=== PATIENT | female | born 1975 | race Caucasian/White ===

== ENCOUNTER 2017-05-27 19:26 | Day surgery (SDC) | payer BC ==
[2017-05-27] MEDS ORDERED: Sodium Chloride 0.9% 10 ML Syringe FLUSH PRN ×2 (20:24→21:56)
[2017-05-27] MEDS ORDERED: LORazepam 2 MG/ML SDV IVPUSH ONE (20:24)
[2017-05-27] MEDS ORDERED: Glucagon,Human Recombinant 1 MG Vial IVPUSH ONE (20:24)
[2017-05-27] MEDS ORDERED: Ondansetron 4 MG/2 ML SDV IVPUSH ONE (20:24)
[2017-05-27] MEDS ORDERED: Sodium Chloride 0.9% 1,000 ML IV SCH ×2 (20:30→22:00)
--- NOTE | 2017-05-27 20:30 | EDM.PDOC ---
ED HPI GENERAL MEDICAL PROBLEM - General Chief Complaint: Gastrointestinal Problem Stated Complaint: FOOD STUCK IN ESOPHGUS Time Seen by Provider: 05/27/17 20:06 Source of Information: Reports: Patient History Limitations: Reports: No Limitations - History of Present Illness INITIAL COMMENTS - FREE TEXT/NARRATIVE: Patient is a 42-year-old female presents ED complaining of food stuck in her esophagus. She is has a history of eosinophilic esophagitis and has had 2 obstructions in the past with similar symptoms. She's had to go the OR both times to have the food bolus removed. She's been vomiting ever since this occurred at 5:30 this afternoon. Again it was a small piece of roast beef that she swallowed causing the obstruction. Since then she's been vomiting up all her secretions. Pain is mild to moderate in nature. No other complaints at this time. Patient has a history of hypothyroidism, factor V Leiden, and anxiety/ depression. Current medications include levothyroxine, Lexapro, and also baby aspirin daily. Throat Pain Score (Numeric/FACES): 10 - Related Data Allergies Allergy/AdvReac Type Severity Reaction Status Date / Time levothyroxine sodium Allergy Mild Hives Verified 05/27/17 20:00 [From Synthroid] nitrofurantoin Allergy Mild Hives Verified 05/27/17 20:00 [From Macrobid] nitrofurantoin Allergy Mild Hives Verified 05/27/17 20:00 macrocrystalline [From Macrobid] Penicillins Allergy Mild Hives Verified 05/27/17 20:00 Sulfa (Sulfonamide AdvReac Mild Vaginitis Verified 05/27/17 20:00 Antibiotics) Home Meds: Home Meds Aspirin [Halfprin] 81 mg PO DAILY 03/06/16 [History] Escitalopram [Lexapro] 10 mg PO DAILY 03/06/16 [History] Levothyroxine Sodium [Levothyroxine Sodium] 88 mcg PO DAILY 03/06/16 [History] Past Medical History Respiratory History: Reports: Asthma Gastrointestinal History: Reports: Other (See Below) Other Gastrointestinal History: chronic esophogitis, 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: Psychiatric History: Reports: Depression Endocrine/Metabolic History: Reports: Hypothyroidism Hematologic History: Reports: Other (See Below) Other Hematologic History: factor IV leiden - Past Surgical History HEENT Surgical History: Reports: Other (See Below) Other HEENT Surgeries/Procedures: esophigitis Female Surgical History: Reports: Breast Reduction, Section, Tubal Ligation Social & Family History - Family History Cardiac: Reports: CAD Endocrine/Metabolic: Reports: Diabetes, type II - Tobacco Use Smoking Status *Q: Never Smoker Second Hand Smoke Exposure: No - Caffeine Use Caffeine Use: Reports: None - Recreational Drug Use Recreational Drug Use: No ED ROS GENERAL - Review of Systems Review Of Systems: ROS reveals no pertinent complaints other than HPI. ED EXAM, GI/ABD - Physical Exam Exam: See Below Exam Limited By: No Limitations General Appearance: Alert, WD/WN, Mild Distress Ears: Hearing Grossly Normal Nose: Normal Inspection Throat/Mouth: Normal Inspection, Normal Oropharynx, Normal Voice, No Airway Compromise Head: Atraumatic, Normocephalic Neck: Normal Inspection, Supple Respiratory/Chest: No Respiratory Distress, Lungs Clear, Normal Breath Sounds, No Accessory Muscle Use, Chest Non-Tender Cardiovascular: Normal Peripheral Pulses, Regular Rate, Rhythm GI/Abdominal Exam: Normal Bowel Sounds, Soft, Non-Tender, No Organomegaly, No Distention Neurological: Alert, Oriented, CN II-XII Intact, Normal Cognition, No Motor/ Sensory Deficits Psychiatric: Normal Affect, Normal Mood Skin Exam: Warm, Dry, Intact, Normal Color Course - Vital Signs Last Recorded V/S: Last Vital Signs Temp 98.3 F 05/27/17 23:24 Pulse 96 05/27/17 23:24 Resp 18 05/27/17 23:24 BP 109/71 05/27/17 23:24 Pulse Ox 96 05/27/17 23:24 - Orders/Labs/Meds Orders: Active Orders 24 hr Category Date Time Status Patient Status [ADT] Routine ADT 05/27/17 21:52 Active Communication Order [RC] ROUTINE Care 05/27/17 21:56 Active Communication Order [RC] ROUTINE Care 05/27/17 22:39 Active Cooling Warming Measures [RC] ASDIRECTED Care 05/27/17 22:39 Active Notify Provider [RC] ASDIRECTED Care 05/27/17 22:39 Active Oxygen Therapy [RC] ASDIRECTED Care 05/27/17 22:39 Active Patient to Empty Bladder [RC] ASDIRECTED Care 05/27/17 21:56 Active Peripheral IV Care [RC] . DIRECTED Care 05/27/17 20:24 Active Peripheral IV Care [RC] . DIRECTED Care 05/27/17 21:57 Active Pulse Oximetry [RC] ASDIRECTED Care 05/27/17 22:39 Active Ready for Discharge [RC] PER UNIT ROUTINE Care 05/27/17 22:26 Active Verify Patient Consent Obtain [RC] ASDIRECTED Care 05/27/17 21:56 Active Vital Signs [RC] Q15M Care 05/27/17 22:39 Active Peripheral IV Insertion Adult [OM.PC] Routine Oth 05/27/17 20:24 Ordered Peripheral IV Insertion Adult [OM.PC] Routine Oth 05/27/17 21:56 Ordered Schedule Procedure [COMM] Stat Oth 05/27/17 22:01 Ordered Resuscitation Status Routine Resus Stat 05/27/17 21:56 Ordered Meds: Medications Discontinued Medications Generic Name Dose Route Start Last Admin Trade Name Freq PRN Reason Stop Dose Admin Dexamethasone Confirm 05/27/17 22:22 Dexamethasone Administered 05/27/17 22:23 Dose 4 mg .ROUTE .STK-MED ONE Dexamethasone Confirm 05/27/17 22:22 Dexamethasone Administered 05/27/17 22:23 Dose 4 mg .ROUTE .STK-MED ONE Diphenhydramine HCl 25 mg 05/27/17 22:39 Benadryl IVPUSH Q6H PRN Pruritis Fentanyl Confirm 05/27/17 21:44 Sublimaze Administered 05/27/17 21:45 Dose 250 mcg .ROUTE .STK-MED ONE Fentanyl 50 mcg 05/27/17 22:39 Sublimaze IVPUSH Q5M PRN Pain Glucagon 1 mg 05/27/17 20:24 05/27/17 20:58 Glucagen IVPUSH 05/27/17 20:25 1 mg ONETIME ONE Administration Glycopyrrolate Confirm 05/27/17 22:24 Robinul Administered 05/27/17 22:25 Dose 0.2 mg .ROUTE .STK-MED ONE Haloperidol Lactate 1 mg 05/27/17 22:39 Haldol IVPUSH 05/27/17 22:40 ONETIME ONE Sodium Chloride 1,000 mls @ 150 mls/hr 05/27/17 20:30 05/27/17 20:52 Normal Saline IV 150 mls/hr ASDIRECTED TOMER Administration Lidocaine HCl Confirm 05/27/17 21:44 Xylocaine-Mpf 1% Administered 05/27/17 21:45 Dose 4 mls @ as directed .ROUTE .STK-MED ONE Sodium Chloride 1,000 mls @ 125 mls/hr 05/27/17 22:00 Normal Saline IV ASDIRECTED TOMER Lorazepam 1 mg 05/27/17 20:24 05/27/17 20:55 Ativan IVPUSH 05/27/17 20:25 1 ml ONETIME ONE Administration Midazolam HCl Confirm 05/27/17 21:44 Versed 1 Mg/Ml Administered 05/27/17 21:45 Dose 2 mg .ROUTE .STK-MED ONE Ondansetron HCl 4 mg 05/27/17 20:24 05/27/17 20:53 Zofran IVPUSH 05/27/17 20:25 4 mg ONETIME ONE Administration Propofol Confirm 05/27/17 21:44 Diprivan 20 Ml Administered 05/27/17 21:45 Dose 400 mg .ROUTE .STK-MED ONE Sodium Chloride 10 ml 05/27/17 20:24 05/27/17 20:52 Saline Flush FLUSH 10 ml ASDIRECTED PRN Administration Keep Vein Open Sodium Chloride 10 ml 05/27/17 21:56 Saline Flush FLUSH ASDIRECTED PRN Keep Vein Open Succinylcholine Chloride Confirm 05/27/17 21:44 Quelicin Administered 05/27/17 21:45 Dose 200 mg .ROUTE .STK-MED ONE - Re-Assessments/Exams Free Text/Narrative Re-Assessment/Exam: Order peripheral IV with Ativan 1 mg IVP, glucagon 1 mg IVP, and also Zofran 4 mg IVP. 2124 Patient received the medications and has been sipping on small amounts of Sprite with no change in current condition. 05/27/17 21:[address] Venegas on-call general surgeon he will see the patient in the ED. Request OR staff be called in. Departure - Departure Time of Disposition: 21:30 Disposition: DC/Tfer to [facility] Condition: Good Clinical Impression: Esophageal obstruction due to food impaction - Discharge Information - My Orders Last 24 Hours: My Active Orders 05/27/17 20:24 Peripheral IV Care [RC] . DIRECTED Peripheral IV Insertion Adult [OM.PC] Routine - Assessment/Plan Last 24 Hours: My Active Orders 05/27/17 20:24 Peripheral IV Care [RC] . DIRECTED Peripheral IV Insertion Adult [OM.PC] Routine
[2017-05-27] MEDS ORDERED: fentaNYL 250 MCG/5 ML SDV ONE (21:44)
[2017-05-27] MEDS ORDERED: Succinylcholine 200 MG/10 ML MDV ONE (21:44)
[2017-05-27] MEDS ORDERED: Propofol 200 MG/20 ML SDV ONE (21:44)
[2017-05-27] MEDS ORDERED: Midazolam 1 MG/ML 2 ML SDV ONE (21:44)
[2017-05-27] MEDS ORDERED: Lidocaine 1% 4 ML ONE (21:44)
--- NOTE | 2017-05-27 22:04 | PCM.HP ---
H&P History of Present Illness - General Date of Service: 05/27/17 Admit Problem/Dx: Admission Diagnosis/Problem Admission Diagnosis/Problem Food impaction of esophagus Source of Information: Patient, Family, Provider - History of Present Illness Initial Comments - Free Text/Narative: 42-year-old female is 10 and 4 years status post balloon dilatation for reflux related esophageal strictures. During her last endoscopic procedure she was diagnosed with eosinophilic esophagitis. She is being followed by gastroenterology in [place] for this. She has been meticulous about how she eats foods by chewing well and using judicious amounts of water or liquids to make sure food passage occurs. Over the past year or so she's had progressive difficulty with swallowing. About 4 hours prior to presenting to the emergency room she ate roast beef and knew immediately that it was stuck and wouldn't pass. She was unable to handle her salivary secretions and was experiencing chest discomfort. She was seen by ED staff who tried to medically manage her esophageal food impaction but this effort was unsuccessful. I was asked to see her for mechanical disimpaction. Throat Pain Score (Numeric/FACES): 10 - Related Data Allergies/Adverse Reactions: Allergies Allergy/AdvReac Type Severity Reaction Status Date / Time levothyroxine sodium Allergy Mild Hives Verified 05/27/17 20:00 [From Synthroid] nitrofurantoin Allergy Mild Hives Verified 05/27/17 20:00 [From Macrobid] nitrofurantoin Allergy Mild Hives Verified 05/27/17 20:00 macrocrystalline [From Macrobid] Penicillins Allergy Mild Hives Verified 05/27/17 20:00 Sulfa (Sulfonamide AdvReac Mild Vaginitis Verified 05/27/17 20:00 Antibiotics) Home Medications: Home Meds Aspirin [Halfprin] 81 mg PO DAILY 03/06/16 [History] Escitalopram [Lexapro] 10 mg PO DAILY 03/06/16 [History] Levothyroxine Sodium [Levothyroxine Sodium] 88 mcg PO DAILY 03/06/16 [History] Past Medical History Respiratory History: Reports: Asthma Gastrointestinal History: Reports: Other (See Below) Other Gastrointestinal History: chronic esophogitis, 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: Psychiatric History: Reports: Depression Endocrine/Metabolic History: Reports: Hypothyroidism Hematologic History: Reports: Other (See Below) Other Hematologic History: factor IV leiden - Past Surgical History HEENT Surgical History: Reports: Other (See Below) Other HEENT Surgeries/Procedures: esophigitis Female Surgical History: Reports: Breast Reduction, Section, Tubal Ligation Social & Family History - Family History Cardiac: Reports: CAD Endocrine/Metabolic: Reports: Diabetes, type II - Tobacco Use Smoking Status *Q: Never Smoker Second Hand Smoke Exposure: No - Caffeine Use Caffeine Use: Reports: None - Recreational Drug Use Recreational Drug Use: No H&P Review of Systems - Review of Systems: Review Of Systems: ROS reveals no pertinent complaints other than HPI. Exam - Exam Exam: See Below - Vital Signs Vital Signs: Last Vital Signs Temp 36.0 C 05/27/17 19:57 Pulse 93 05/27/17 19:57 Resp 16 05/27/17 19:57 BP 148/86 H 05/27/17 19:57 Pulse Ox 99 05/27/17 19:57 Weight: 92.986 kg - Exam General: Alert, Oriented, Mild Distress HEENT: Hearing Intact Neck: Supple, Trachea Midline, Full Range of Motion Lungs: Clear to Auscultation, Normal Respiratory Effort Cardiovascular: Regular Rate, Regular Rhythm, Normal S1, Normal S2 GI/Abdominal Exam: Soft, Non-Tender (Female) Exam: Deferred Rectal (Female) Exam: Deferred Extremities: Non-Tender Skin: Warm, Dry, Intact Neuro Extensive - Mental Status: Alert, Oriented x3, Normal Mood/Affect, Normal Cognition Psychiatric: Alert, Normal Affect, Normal Mood *Q Meaningful Use (ADM) - VTE *Q VTE Criteria *Q: - Stroke *Q Stroke Criteria *Q: - AMI *Q AMI Criteria *Q: - Problem List (1) Esophageal obstruction due to food impaction SNOMED Code(s): 035872914 ICD Code: K22.2 - ESOPHAGEAL OBSTRUCTION; T18.128A - FOOD IN ESOPHAGUS CAUSING OTHER INJURY, INITIAL ENCOUNTER Status: Acute Priority: High Current Visit: Yes Problem List Initiated/Reviewed/Updated: Yes Orders Last 24hrs: Active Orders 24 hr Category Date Time Status Patient Status [ADT] Routine ADT 05/27/17 21:52 Active Communication Order [RC] ROUTINE Care 05/27/17 21:56 Ordered Patient to Empty Bladder [RC] ASDIRECTED Care 05/27/17 21:56 Ordered Peripheral IV Care [RC] . DIRECTED Care 05/27/17 20:24 Active Peripheral IV Care [RC] . DIRECTED Care 05/27/17 21:57 Ordered Verify Patient Consent Obtain [RC] ASDIRECTED Care 05/27/17 21:56 Ordered Nothing Per Oral Diet [DIET] Diet 05/27/17 Dinner Ordered Sodium Chloride 0.9% @ 125 MLS/HR (1000ml) Med 05/27/17 22:00 Ordered Sodium Chloride 0.9% [Normal Saline] 1,000 ml IV ASDIRECTED Sodium Chloride 0.9% [Normal Saline] 1,000 ml Med 05/27/17 20:30 Active IV ASDIRECTED Sodium Chloride 0.9% [Saline Flush] Med 05/27/17 20:24 Active 10 ml FLUSH ASDIRECTED PRN Sodium Chloride 0.9% [Saline Flush] Med 05/27/17 21:56 Ordered 10 ml FLUSH ASDIRECTED PRN Peripheral IV Insertion Adult [OM.PC] Routine Oth 05/27/17 20:24 Ordered Peripheral IV Insertion Adult [OM.PC] Routine Oth 05/27/17 21:56 Ordered Resuscitation Status Routine Resus Stat 05/27/17 21:56 Ordered Medication Orders Sodium Chloride (Normal Saline) 1,000 mls @ 150 mls/hr IV ASDIRECTED TOMER Last Admin: 05/27/17 20:52 Dose: 150 mls/hr Sodium Chloride (Normal Saline) 1,000 mls @ 125 mls/hr IV ASDIRECTED TOMER Sodium Chloride (Saline Flush) 10 ml FLUSH ASDIRECTED PRN PRN Reason: Keep Vein Open Last Admin: 05/27/17 20:52 Dose: 10 ml Sodium Chloride (Saline Flush) 10 ml FLUSH ASDIRECTED PRN PRN Reason: Keep Vein Open Assessment/Plan Comment:: Esophageal meat impaction refractory to medical management. I recommended esophagogastroduodenoscopy with meat disimpaction plus or minus biopsies. The patient's memory with procedure, its risks and benefits as well as the alternatives and wants to proceed as soon as possible.
[2017-05-27] MEDS ORDERED: Dexamethasone 4 MG/ML SDV ONE ×2 (22:22)
[2017-05-27] MEDS ORDERED: Glycopyrrolate 0.2 MG/ML SDV ONE (22:24)
--- NOTE | 2017-05-27 22:34 | PCM.OPNOTE ---
- General Post-Op/Procedure Note Date of Surgery/Procedure: 05/27/17 Operative Procedure(s): Esophagogastroduodenoscopy with esophageal meat disimpaction Findings: Narrow caliber esophagus with no jameel strictures or mass lesions. Esophageal mucosa was erythematous consistent with eosinophilic esophagitis. There was roast beef impacted in the distal esophagus just above the GE junction. There was food in the body of the stomach. Pre Op Diagnosis: Symptomatic esophageal meat impaction refractory to medical management Post-Op Diagnosis: Same Anesthesia Technique: General ET Tube Primary Surgeon: Jay Venegas Pathology: None EBL in mLs: 0 Complications: None Condition: Good Free Text/Narrative:: After adequate general endotracheal tube anesthesia was obtained the patient was placed in the left lateral decubitus position with monitoring. Through a bite-block lubricated upper endoscope was inserted into the esophagus and advanced towards the stomach. I could see the roast beef stuck in the distal aspect of the esophagus. I irrigated out the distal esophagus with saline solution. I then slowly advance the scope pushing the meat very carefully through the GE junction after making sure there were no strictures or mass lesions present. The food dropped into the stomach. There was additional fluid inthe body the stomach from this evening meal. I then gave additional air and then advanced scope towards the antrum and pylorus. I passed the scope through the pylorus into the second part of the duodenum. The second and first parts were endoscopically normal. The antrum was unremarkable. In the retroflexed view the cardiac and fundic regions were normal. There was no hiatal hernia. There was food in the body of the stomach as mentioned before. I then withdrew the scope to the GE junction. There were no Schatzki's rings webs or peptic stricture seen. There were no distal esophageal mass lesions. The esophagus was narrow caliber in general and had a light erythematous hue to it consistent with chronic esophagitis diffusely. I irrigated out the entire body esophagus until it was clear. The patient tolerated the procedure well and there were no complications. [employer] photographs were taken for the patient and for the medical record.
--- NOTE | 2017-05-27 22:38 | PCM.PREANE ---
Preanesthetic Assessment - Anesthesia/Transfusion/Family Hx Anesthesia History: Prior Anesthesia Without Reaction Family History of Anesthesia Reaction: No - Review of Systems General: No Symptoms Pulmonary: No Symptoms Cardiovascular: No Symptoms Gastrointestinal: Difficulty Swallowing, Nausea, Vomiting Neurological: No Symptoms Other: Reports: Thyroid Problems, Throat Pain - Physical Assessment NPO Status Date: 05/27/17 NPO Status Time: 18:30 O2 Sat by Pulse Oximetry: 96 Respiratory Rate: 17 Vital Signs: Last Vital Signs Temp 36.8 C 05/27/17 22:32 Pulse 114 H 05/27/17 22:32 Resp 17 05/27/17 22:32 BP 113/70 05/27/17 22:32 Pulse Ox 96 05/27/17 22:32 Height: 1.57 m Weight: 92.986 kg ASA Class: 2E Mental Status: Alert & Oriented x3 Airway Class: Mallampati = 1 Dentition: Reports: Normal Dentition Thyro-Mental Finger Breadths: 3 Mouth Opening Finger Breadths: 3 ROM/Head Extension: Full Lungs: Clear to Auscultation, Normal Respiratory Effort Cardiovascular: Regular Rate, Regular Rhythm - Allergies Allergies/Adverse Reactions: Allergies Allergy/AdvReac Type Severity Reaction Status Date / Time levothyroxine sodium Allergy Mild Hives Verified 05/27/17 20:00 [From Synthroid] nitrofurantoin Allergy Mild Hives Verified 05/27/17 20:00 [From Macrobid] nitrofurantoin Allergy Mild Hives Verified 05/27/17 20:00 macrocrystalline [From Macrobid] Penicillins Allergy Mild Hives Verified 05/27/17 20:00 Sulfa (Sulfonamide AdvReac Mild Vaginitis Verified 05/27/17 20:00 Antibiotics) - Acknowledgements Anesthesia Type Planned: General Anesthesia Pt an Appropriate Candidate for the Planned Anesthesia: Yes Alternatives and Risks of Anesthesia Discussed w Pt/Guardian: Yes Pt/Guardian Understands and Agrees with Anesthesia Plan: Yes PreAnesthesia Questionnaire Respiratory History: Reports: Asthma Gastrointestinal History: Reports: Other (See Below) Other Gastrointestinal History: chronic esophogitis, 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: Psychiatric History: Reports: Depression Endocrine/Metabolic History: Reports: Hypothyroidism Hematologic History: Reports: Other (See Below) Other Hematologic History: factor IV leiden - Past Surgical History HEENT Surgical History: Reports: Other (See Below) Other HEENT Surgeries/Procedures: esophigitis Female Surgical History: Reports: Breast Reduction, Section, Tubal Ligation - SUBSTANCE USE Smoking Status *Q: Never Smoker Second Hand Smoke Exposure: No Recreational Drug Use History: No - HOME MEDS Home Medications: Home Meds Aspirin [Halfprin] 81 mg PO DAILY 03/06/16 [History] Escitalopram [Lexapro] 10 mg PO DAILY 03/06/16 [History] Levothyroxine Sodium [Levothyroxine Sodium] 88 mcg PO DAILY 03/06/16 [History] - CURRENT (IN HOUSE) MEDS Current Meds: Current Medications Sodium Chloride (Normal Saline) 1,000 mls @ 125 mls/hr IV ASDIRECTED TOMER Sodium Chloride (Saline Flush) 10 ml FLUSH ASDIRECTED PRN PRN Reason: Keep Vein Open Last Admin: 05/27/17 20:52 Dose: 10 ml Sodium Chloride (Saline Flush) 10 ml FLUSH ASDIRECTED PRN PRN Reason: Keep Vein Open Discontinued Medications Dexamethasone (Dexamethasone) Confirm Administered Dose 4 mg .ROUTE .STK-MED ONE Stop: 05/27/17 22:23 Dexamethasone (Dexamethasone) Confirm Administered Dose 4 mg .ROUTE .STK-MED ONE Stop: 05/27/17 22:23 Fentanyl (Sublimaze) Confirm Administered Dose 250 mcg .ROUTE .STK-MED ONE Stop: 05/27/17 21:45 Glucagon (Glucagen) 1 mg IVPUSH ONETIME ONE Stop: 05/27/17 20:25 Last Admin: 05/27/17 20:58 Dose: 1 mg Glycopyrrolate (Robinul) Confirm Administered Dose 0.2 mg .ROUTE .STK-MED ONE Stop: 05/27/17 22:25 Sodium Chloride (Normal Saline) 1,000 mls @ 150 mls/hr IV ASDIRECTED TOMER Last Admin: 05/27/17 20:52 Dose: 150 mls/hr Lidocaine HCl (Xylocaine-Mpf 1%) Confirm Administered Dose 4 mls @ as directed .ROUTE .STK-MED ONE Stop: 05/27/17 21:45 Lorazepam (Ativan) 1 mg IVPUSH ONETIME ONE Stop: 05/27/17 20:25 Last Admin: 05/27/17 20:55 Dose: 1 ml Midazolam HCl (Versed 1 Mg/Ml) Confirm Administered Dose 2 mg .ROUTE .STK-MED ONE Stop: 05/27/17 21:45 Ondansetron HCl (Zofran) 4 mg IVPUSH ONETIME ONE Stop: 05/27/17 20:25 Last Admin: 05/27/17 20:53 Dose: 4 mg Propofol (Diprivan 20 Ml) Confirm Administered Dose 400 mg .ROUTE .STK-MED ONE Stop: 05/27/17 21:45 Succinylcholine Chloride (Quelicin) Confirm Administered Dose 200 mg .ROUTE .STK -MED ONE Stop: 05/27/17 21:45
[2017-05-27] MEDS ORDERED: fentaNYL 100 MCG/2 ML SDV IVPUSH PRN (22:39)
[2017-05-27] MEDS ORDERED: diphenhydrAMINE 50 MG/ML SDV IVPUSH PRN (22:39)
[2017-05-27] MEDS ORDERED: Haloperidol Lactate 5 MG/ML SDV IVPUSH ONE (22:39)
--- NOTE | 2017-05-27 22:44 | PCM.POSTAN ---
POST ANESTHESIA ASSESSMENT - MENTAL STATUS Mental Status: Alert, Oriented - VITAL SIGNS Pulse Rate: 114 SaO2: 96 Resp Rate: 17 Blood Pressure: 113/70 Temperature: 36.8 C - RESPIRATORY Respiratory Status: Respiratory Rate WNL, Airway Patent, O2 Saturation Stable, Supplemental Oxygen - CARDIOVASCULAR CV Status: Pulse Rate WNL, Blood Pressure Stable - GASTROINTESTINAL GI Status: No Symptoms - PAIN Pain Score: 0 - POST OP HYDRATION Hydration Status: Adequate & Stable
--- NOTE | 2017-05-27 22:45 | PCM48HPAN ---
Post Anesthesia Note - EVALUATION WITHIN 48HRS OF ANESTHETIC Vital Signs in Normal Range: Yes Patient Participated in Evaluation: Yes Respiratory Function Stable: Yes Airway Patent: Yes Cardiovascular Function Stable: Yes Hydration Status Stable: Yes Pain Control Satisfactory: Yes Nausea and Vomiting Control Satisfactory: Yes Mental Status Recovered: Yes Pulse Rate: 114 Resp Rate: 17 Temperature: 36.8 C Blood Pressure: 113/70
[2017-05-27 23:26] VITALS: BP 109/71
== END 2017-05-27 23:40 | disposition home or self-care (01) ==
LOC: JD.ED 19:26 → JD.SDS 21:49
PROVIDERS: ATTEND Surgery
DX: T18.128A Food in esophagus causing other injury, initial encounter (principal); K20.9 Esophagitis, unspecified; F32.9 Major depressive disorder, single episode, unspecified; E03.9 Hypothyroidism, unspecified; J45.909 Unspecified asthma, uncomplicated; X58.XXXA Exposure to other specified factors, initial encounter; Z88.8 Allergy status to other drugs, medicaments and biological substances; Z88.0 Allergy status to penicillin; Z88.2 Allergy status to sulfonamides; Z79.82 Long term (current) use of aspirin; Z79.899 Other long term (current) drug therapy
CPT/HCPCS: 43247; 96361; 96374; 96375; 99285; J0330; J1100; J1610; J2060; J2250; J2405; J3010; J3490; J7040; J7050; J2704

== ENCOUNTER 2019-12-26 12:21 | Emergency (ER) | payer BC ==
[2019-12-26 12:40] VITALS: BP 130/80; PULSE 72
--- NOTE | 2019-12-26 13:07 | EDM.PDOC ---
ED HPI GENERAL MEDICAL PROBLEM - General Chief Complaint: Cardiovascular Problem Stated Complaint: HEART RACING AND TINGLING IN HAND Time Seen by Provider: 12/26/19 12:40 - History of Present Illness INITIAL COMMENTS - FREE TEXT/NARRATIVE: Patient is a 44-year-old female presenting to the emergency department after having an episode of chest tightness, palpitations with increased heart rate, dizziness, and tingling in her left arm. She states that she was at work when the symptoms occurred, she was standing but not doing anything exertional. Symptoms lasted for approximately 1 minute, however she does still have some res idual tingling in her left hand. The heart rate monitor on her Fitbit showed that she was maintaining around 120 bpm for a heart rate. Denies numbness or weakness of the extremity. This episode occurred around noon today. She denies any significant cardiac history. She does not have any chest pain or tightness at this time. Denies the feeling of palpitations. The only residual effect is that she has some tingling in her hand and states that she "feels a little off ". When asked to elaborate on this she states that she feels a little lightheaded. Prior to this incident she was feeling well. She said no fever, chills, nausea, vomiting, or diarrhea recently. Left Hand Pain Score (Numeric/FACES): 5 - Related Data Allergies Allergy/AdvReac Type Severity Reaction Status Date / Time levothyroxine sodium Allergy Mild Hives Verified 12/26/19 12:31 [From Synthroid] nitrofurantoin Allergy Mild Hives Verified 12/26/19 12:31 [From Macrobid] nitrofurantoin Allergy Mild Hives Verified 12/26/19 12:31 macrocrystalline [From Macrobid] Penicillins Allergy Mild Hives Verified 12/26/19 12:31 Sulfa (Sulfonamide AdvReac Mild Vaginitis Verified 12/26/19 12:31 Antibiotics) Home Meds: Home Meds Levothyroxine Sodium 88 mcg PO DAILY 03/06/16 [History] Albuterol [Proventil HFA] 1 - 2 puff INH Q4H PRN 12/12/17 [History] Aspirin [Daryl Chewable Aspirin] 81 mg PO DAILY 12/12/17 [History] Famotidine [Pepcid] 40 mg PO BEDTIME 12/12/17 [History] Fluticasone Propionate [Flovent Hfa] 2 puff INH BID 12/12/17 [History] Ibuprofen 600 mg PO Q6H PRN 12/12/17 [History] Omeprazole 40 mg PO DAILY 12/12/17 [History] valACYclovir [Valtrex] 2,000 mg PO ASDIRECTED PRN 12/12/17 [History] Past Medical History HEENT History: Reports: None Cardiovascular History: Reports: Other (See Below) Other Cardiovascular History: 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 Genitourinary History: Reports: UTI, Recurrent [employer] History: Reports: Dysfunctional Uterine Bleeding, Endometriosis, Fibroids Musculoskeletal History: Reports: None Neurological History: Reports: Migraines Psychiatric History: Reports: Anxiety Endocrine/Metabolic History: Reports: Hypothyroidism Hematologic History: Reports: Other (See Below) Other Hematologic History: factor IV leiden Immunologic History: Reports: None Oncologic (Cancer) History: Reports: None Dermatologic History: Reports: None - Infectious Disease History Infectious Disease History: Reports: None - Past Surgical History Head Surgeries/Procedures: Reports: None HEENT Surgical History: Reports: Other (See Below) Other HEENT Surgeries/Procedures: esophigitis Cardiovascular Surgical History: Reports: None GI Surgical History: Reports: EGD Other GI Surgeries/Procedures: chronic acid reflux Female Surgical History: Reports: Breast Reduction, Section, Tubal Ligation Musculoskeletal Surgical History: Reports: None Social & Family History - Family History Family Medical History: Noncontributory Cardiac: Reports: CAD Endocrine/Metabolic: Reports: Diabetes, type II - Tobacco Use Tobacco Use Status *Q: Never Tobacco User - Caffeine Use Caffeine Use: Reports: None - Recreational Drug Use Recreational Drug Use: No ED ROS GENERAL - Review of Systems Review Of Systems: See Below Constitutional: Reports: No Symptoms. Denies: Fever, Chills, Weakness HEENT: Reports: No Symptoms Respiratory: Reports: Shortness of Breath (Transient). Denies: Cough Cardiovascular: Reports: Lightheadedness, Palpitations, Other (Chest tightness) Endocrine: Reports: No Symptoms GI/Abdominal: Reports: Nausea. Denies: Abdominal Pain, Diarrhea, Vomiting : Reports: No Symptoms Musculoskeletal: Reports: No Symptoms Skin: Reports: No Symptoms Neurological: Reports: Paresthesia (Left hand) Psychiatric: Reports: No Symptoms Hematologic/Lymphatic: Reports: No Symptoms Immunologic: Reports: No Symptoms ED EXAM, GENERAL - Physical Exam Exam: See Below Exam Limited By: No Limitations General Appearance: Alert, WD/WN, No Apparent Distress Eye Exam: Bilateral Eye: Normal Inspection, PERRL Respiratory/Chest: No Respiratory Distress, Lungs Clear, Normal Breath Sounds, No Accessory Muscle Use, Chest Non-Tender Cardiovascular: Normal Peripheral Pulses, Regular Rate, Rhythm, No Edema, No Gallop, No JVD, No Murmur, No Rub GI/Abdominal: Normal Bowel Sounds, Soft, Non-Tender, No Organomegaly, No Distention, No Abnormal Bruit, No Mass Neurological: Alert, Oriented, CN II-XII Intact, Normal Cognition, Normal Gait, Normal Reflexes, No Motor/Sensory Deficits Psychiatric: Normal Affect, Normal Mood Skin Exam: Warm, Dry, Intact, Normal Color, No Rash #1 Interpretation EKG Date: 12/26/19 Time: 12:34 Rhythm: NSR Rate (Beats/Min): 65 [place]: Normal P-Wave: Present QRS: Normal ST-T: Normal QT: Normal Course - Vital Signs Last Recorded V/S: Last Vital Signs Temp 97.3 F 12/26/19 12:36 Pulse 72 12/26/19 12:36 Resp 16 12/26/19 12:36 BP 130/80 12/26/19 12:36 Pulse Ox 100 12/26/19 12:36 - Orders/Labs/Meds Orders: Active Orders 24 hr Category Date Time Status Chest 1V Frontal [CR] Stat Exams 12/26/19 12:40 Taken Head wo Cont [CT] Stat Exams 12/26/19 13:30 Taken Labs: Laboratory Tests 12/26/19 12/26/19 12/26/19 Range/Units 12:45 12:45 12:45 WBC 7.98 (3.98-10.04) K/mm3 RBC 4.33 (3.98-5.22) M/mm3 Hgb 12.4 (11.2-15.7) gm/dl Hct 37.9 (34.1-44.9) % MCV 87.5 (79.4-94.8) fl MCH 28.6 (25.6-32.2) pg MCHC 32.7 (32.2-35.5) g/dl RDW Std Deviation 41.3 (36.4-46.3) fL Plt Count 260 (182-369) K/mm3 MPV 11.0 (9.4-12.3) fl Neut % (Auto) 55.2 (34.0-71.1) % Lymph % (Auto) 34.2 (19.3-51.7) % [place] % (Auto) 7.4 (4.7-12.5) % Eos % (Auto) 2.6 (0.7-5.8) Baso % (Auto) 0.5 (0.1-1.2) % Neut # (Auto) 4.40 (1.56-6.13) K/mm3 Lymph # (Auto) 2.73 (1.18-3.74) K/mm3 [place] # (Auto) 0.59 H (0.24-0.36) K/mm3 Eos # (Auto) 0.21 (0.04-0.36) K/mm3 Baso # (Auto) 0.04 (0.01-0.08) K/mm3 D-Dimer, Quantitative 0.32 (0.19-0.50) mg/L Sodium 138 (136-145) mEq/L Potassium 3.6 (3.5-5.1) mEq/L Chloride 103 (98-107) mEq/L Carbon Dioxide 22 (21-32) mEq/L Anion Gap 16.6 H (5-15) BUN 16 (7-18) mg/dL Creatinine 1.0 (0.55-1.02) mg/dL Est Cr Clr Drug Dosing 56.19 mL/min Estimated GFR (MDRD) 60 (>60) mL/min BUN/Creatinine Ratio 16.0 (14-18) Glucose 99 (74-106) mg/dL Calcium 8.6 (8.5-10.1) mg/dL Total Bilirubin 0.8 (0.2-1.0) mg/dL AST 19 (15-37) U/L ALT 23 (14-59) U/L Alkaline Phosphatase 72 (46-116) U/L Troponin I < 0.017 (0.00-0.056) ng/mL C-Reactive Protein 0.2 (<1.0) mg/dL Total Protein 7.0 (6.4-8.2) g/dl Albumin 3.7 (3.4-5.0) g/dl Globulin 3.3 gm/dL Albumin/Globulin Ratio 1.1 (1-2) 12/25/ Range/Units 15:20 WBC (3.98-10.04) K/mm3 RBC (3.98-5.22) M/mm3 Hgb (11.2-15.7) gm/dl Hct (34.1-44.9) % MCV (79.4-94.8) fl MCH (25.6-32.2) pg MCHC (32.2-35.5) g/dl RDW Std Deviation (36.4-46.3) fL Plt Count (182-369) K/mm3 MPV (9.4-12.3) fl Neut % (Auto) (34.0-71.1) % Lymph % (Auto) (19.3-51.7) % [place] % (Auto) (4.7-12.5) % Eos % (Auto) (0.7-5.8) Baso % (Auto) (0.1-1.2) % Neut # (Auto) (1.56-6.13) K/mm3 Lymph # (Auto) (1.18-3.74) K/mm3 [place] # (Auto) (0.24-0.36) K/mm3 Eos # (Auto) (0.04-0.36) K/mm3 Baso # (Auto) (0.01-0.08) K/mm3 D-Dimer, Quantitative (0.19-0.50) mg/L Sodium (136-145) mEq/L Potassium (3.5-5.1) mEq/L Chloride (98-107) mEq/L Carbon Dioxide (21-32) mEq/L Anion Gap (5-15) BUN (7-18) mg/dL Creatinine (0.55-1.02) mg/dL Est Cr Clr Drug Dosing mL/min Estimated GFR (MDRD) (>60) mL/min BUN/Creatinine Ratio (14-18) Glucose (74-106) mg/dL Calcium (8.5-10.1) mg/dL Total Bilirubin (0.2-1.0) mg/dL AST (15-37) U/L ALT (14-59) U/L Alkaline Phosphatase (46-116) U/L Troponin I < 0.017 (0.00-0.056) ng/mL C-Reactive Protein (<1.0) mg/dL Total Protein (6.4-8.2) g/dl Albumin (3.4-5.0) g/dl Globulin gm/dL Albumin/Globulin Ratio (1-2) Meds: Medications Discontinued Medications Generic Name Dose Route Start Last Admin Trade Name Freq PRN Reason Stop Dose Admin Sodium Chloride 1,000 mls @ 500 mls/hr 12/26/19 13:34 12/26/19 13:50 Normal Saline IV 12/26/19 15:33 500 mls/hr NOW STA Administration - Re-Assessments/Exams Free Text/Narrative Re-Assessment/Exam: Patient is a 44-year-old female presenting to the emergency department after having an episode of chest tightness, palpitations, headedness and tingling in her left hand. Symptoms have overall resolved, however she does have some sl ight residual tingling in her left hand. She has no significant cardiac history. She is not having chest pain at this time. I ordered a CBC, CMP, CRP, D-dimer, troponin, EKG, chest x-ray. 12/26/19 14:05 Results of patient's work-up thus far has been unremarkable. D-dimer was normal, troponin was negative. EKG showed normal sinus rhythm at 65 with no evidence of ischemia. Chest x-ray was normal. Patient states that when she got up to go to the bathroom she developed a brief headache on the left side as well as some lightheadedness. The symptoms were transient and when I visited with her in her room had resolved. She appears quite concerned. We will do a CT scan of her head. We will plan to repeat a troponin at around 3 PM. 12/26/19 16:01 CT scan of the head was found to be normal. There is no acute intra cranial abnormalities. Repeat troponin was also negative. We will discharge the patient home with a 40-hour Holter monitor. Results will be sent to her primary care physician, Dr. Whitten. Discussed return precautions. Discharge instructions as documented. Departure - Departure Time of Disposition: 16:01 Disposition: Home, Self-Care 01 Condition: Good Clinical Impression: Palpitations Instructions: Palpitations, [id number] Referrals: Fritz Whitten Jr, MD [Primary Care Provider] - Forms: ED Department Discharge Additional Instructions: You were seen in the emergency department today after having an episode of dizziness, tingling in your left arm, and rapid heart rate. Your work-up included blood work, chest x-ray, an EKG of your heart, and a CT scan of your head. Your work-up was found to be completely normal. You are not having a heart attack. There is no evidence of any blood clots within your body. And your CT scan of your head showed no intracranial bleeding or masses. You have been sent home on a 48-hour Holter monitor. Follow the instructions as provided to you. Results will be sent to your primary care physician. Recommend that you schedule a follow-up appointment with him for late next week to review the results and discuss today's occurrences. If you experience any new or worsening symptoms of concern, please not hesitate to return to the emergency department for reevaluation. Sepsis Event Note (ED) - Evaluation Sepsis Screening Result: No Definite Risk - Focused Exam Vital Signs: Vital Signs Temp Pulse Resp BP Pulse Ox 12/26/19 12:36 97.3 F 72 16 130/80 100 - My Orders Last 24 Hours: My Active Orders 12/26/19 12:40 Chest 1V Frontal [CR] Stat 12/26/19 13:30 Head wo Cont [CT] Stat - Assessment/Plan Last 24 Hours: My Active Orders 12/26/19 12:40 Chest 1V Frontal [CR] Stat 12/26/19 13:30 Head wo Cont [CT] Stat
[2019-12-26] MEDS ORDERED: Sodium Chloride 0.9% 1,000 ML IV STA (13:34)
== END 2019-12-26 16:27 | disposition home or self-care (01) ==
LOC: JD.ED 12:21
DX: R00.2 Palpitations (principal); R51.9 Headache, unspecified; R07.89 Other chest pain; J45.909 Unspecified asthma, uncomplicated; E03.9 Hypothyroidism, unspecified; Z79.899 Other long term (current) drug therapy; Z79.82 Long term (current) use of aspirin; Z88.8 Allergy status to other drugs, medicaments and biological substances; Z88.1 Allergy status to other antibiotic agents; Z88.0 Allergy status to penicillin; Z88.2 Allergy status to sulfonamides
CPT/HCPCS: 36415; 70450; 71045; 80053; 84484; 85025; 85379; 86140; 93005; 93225; 93226; 99285; J7030; 93010; 99283

== ENCOUNTER 2020-11-23 11:24 | Emergency (ER) | payer BC ==
[2020-11-23] MEDS ORDERED: Sodium Chloride 0.9% 10 ML Syringe FLUSH PRN (13:36)
[2020-11-23] MEDS ORDERED: methylPREDNISolone Sodium Succinate 125 MG/2 ML SDV IVPUSH PRN (14:21)
[2020-11-23] MEDS ORDERED: Famotidine 20 MG/2 ML SDV IVPUSH PRN (14:21)
[2020-11-23] MEDS ORDERED: diphenhydrAMINE 50 MG/ML SDV IVPUSH PRN (14:21)
[2020-11-23] MEDS ORDERED: EPINEPHrine 1 MG/ML SDV IM PRN (14:21)
[2020-11-23] MEDS ORDERED: Sodium Chloride 0.9% 10 ML Syringe FLUSH SCH (14:30)
--- NOTE | 2020-11-23 14:40 | EDM.PDOC ---
ED HPI GENERAL MEDICAL PROBLEM - General Chief Complaint: Fever Stated Complaint: COVID + Time Seen by Provider: 11/23/20 13:36 Source of Information: Reports: Patient, RN Notes Reviewed History Limitations: Reports: No Limitations - History of Present Illness INITIAL COMMENTS - FREE TEXT/NARRATIVE: Patient is a 45-year-old female presenting to the emergency department with req uest of receiving monoclonal antibody infusion with a known diagnosis of COVID- 19. She reports fever, chills, nausea, vomiting, and cough for the last 8 days. Denies any chest pain or shortness of breath. Reports that her contact tracer through the state recommended that she come to the ER to receive monoclonal antibodies. States that temperature this morning upon waking was 104. She took Motrin and it quickly came down. - Related Data Allergies Allergy/AdvReac Type Severity Reaction Status Date / Time levothyroxine sodium Allergy Severe Hives Verified 11/23/20 12:33 [From Synthroid] nitrofurantoin Allergy Severe Hives Verified 11/23/20 12:33 [From Macrobid] nitrofurantoin Allergy Severe Hives Verified 11/23/20 12:33 macrocrystalline [From Macrobid] Penicillins Allergy Severe Hives Verified 11/23/20 12:33 Sulfa (Sulfonamide AdvReac Severe Vaginitis Verified 11/23/20 12:33 Antibiotics) Home Meds: Home Meds Levothyroxine Sodium 88 mcg PO DAILY 03/06/16 [History] Albuterol [Proventil HFA] 1 - 2 puff INH Q4H PRN 12/12/17 [History] Aspirin [Daryl Chewable Aspirin] 81 mg PO DAILY 12/12/17 [History] Famotidine [Pepcid] 40 mg PO BEDTIME 12/12/17 [History] Fluticasone Propionate [Flovent Hfa] 2 puff INH BID 12/12/17 [History] Ibuprofen 600 mg PO Q6H PRN 12/12/17 [History] Omeprazole 40 mg PO DAILY 12/12/17 [History] valACYclovir [Valtrex] 2,000 mg PO ASDIRECTED PRN 12/12/17 [History] Past Medical History HEENT History: Reports: None Cardiovascular History: Reports: Other (See Below) Other Cardiovascular History: 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 History: Reports: Dysfunctional Uterine Bleeding, Endometriosis, Fibroids Musculoskeletal History: Reports: None Neurological History: Reports: Migraines Psychiatric History: Reports: Anxiety Endocrine/Metabolic History: Reports: Hypothyroidism Hematologic History: Reports: Other (See Below) Other Hematologic History: factor IV leiden Immunologic History: Reports: None Oncologic (Cancer) History: Reports: None Dermatologic History: Reports: None - Infectious Disease History Infectious Disease History: Reports: Novel Coronavirus - Past Surgical History HEENT Surgical History: Reports: Other (See Below) Other HEENT Surgeries/Procedures: esophigitis GI Surgical History: Reports: EGD, Hernia Repair/Other Other GI Surgeries/Procedures: chronic acid reflux Female Surgical History: Reports: Breast Reduction, Section, Tubal Ligation Social & Family History - Family History Family Medical History: No Pertinent Family History Cardiac: Reports: CAD Endocrine/Metabolic: Reports: Diabetes, type II - Tobacco Use Tobacco Use Status *Q: Never Tobacco User - Caffeine Use Caffeine Use: Reports: None - Recreational Drug Use Recreational Drug Use: No ED ROS GENERAL - Review of Systems Review Of Systems: Comprehensive ROS is negative, except as noted in HPI. ED EXAM, GENERAL - Physical Exam Exam: See Below Exam Limited By: No Limitations General Appearance: Alert, WD/WN, No Apparent Distress Respiratory/Chest: No Respiratory Distress, Lungs Clear, Normal Breath Sounds, No Accessory Muscle Use, Chest Non-Tender, Other (Harsh cough with deep breathing) Cardiovascular: Normal Peripheral Pulses, Regular Rate, Rhythm, No Edema, No Gallop, No JVD, No Murmur, No Rub GI/Abdominal: Normal Bowel Sounds, Soft, Non-Tender, No Organomegaly, No Distention, No Abnormal Bruit, No Mass Neurological: Alert, Oriented, CN II-XII Intact, Normal Cognition, Normal Gait, Normal Reflexes, No Motor/Sensory Deficits Psychiatric: Normal Affect, Normal Mood Skin Exam: Warm, Dry, Intact, Normal Color, No Rash Course - Vital Signs Last Recorded V/S: Last Vital Signs Temp 100.1 F 11/23/20 17:51 Pulse 86 11/23/20 17:51 Resp 20 11/23/20 17:51 BP 140/72 09/13/21 17:51 Pulse Ox 96 11/23/20 17:51 - Orders/Labs/Meds Labs: Laboratory Tests 11/23/20 11/23/20 Range/Units 14:56 14:56 WBC 4.92 (3.98-10.04) K/mm3 RBC 4.81 (3.98-5.22) M/mm3 Hgb 13.9 (11.2-15.7) gm/dl Hct 41.2 (34.1-44.9) % MCV 85.7 (79.4-94.8) fl MCH 28.9 (25.6-32.2) pg MCHC 33.7 (32.2-35.5) g/dl RDW Std Deviation 39.6 (36.4-46.3) fL Plt Count 169 L D (182-369) K/mm3 MPV 11.0 (9.4-12.3) fl Neut % (Auto) 65.4 (34.0-71.1) % Lymph % (Auto) 24.4 (19.3-51.7) % [place] % (Auto) 9.6 (4.7-12.5) % Eos % (Auto) 0.2 L (0.7-5.8) Baso % (Auto) 0.2 (0.1-1.2) % Neut # (Auto) 3.22 (1.56-6.13) K/mm3 Lymph # (Auto) 1.20 (1.18-3.74) K/mm3 [place] # (Auto) 0.47 H (0.24-0.36) K/mm3 Eos # (Auto) 0.01 L (0.04-0.36) K/mm3 Baso # (Auto) 0.01 (0.01-0.08) K/mm3 Sodium 140 (136-145) mEq/L Potassium 3.2 L (3.5-5.1) mEq/L Chloride 103 (98-107) mEq/L Carbon Dioxide 25 (21-32) mEq/L Anion Gap 15.2 H (5-15) BUN 9 (7-18) mg/dL Creatinine 0.9 (0.55-1.02) mg/dL Est Cr Clr Drug Dosing 61.77 mL/min Estimated GFR (MDRD) > 60 (>60) mL/min BUN/Creatinine Ratio 10.0 L (14-18) Glucose 110 H (70-99) mg/dL Calcium 8.1 L (8.5-10.1) mg/dL Total Bilirubin 0.6 (0.2-1.0) mg/dL AST 24 (15-37) U/L ALT 24 (14-59) U/L Alkaline Phosphatase 70 (46-116) U/L Total Protein 7.0 (6.4-8.2) g/dl Albumin 3.3 L (3.4-5.0) g/dl Globulin 3.7 gm/dL Albumin/Globulin Ratio 0.9 L (1-2) Meds: Medications Discontinued Medications Generic Name Dose Route Start Last Admin Trade Name Freq PRN Reason Stop Dose Admin Diphenhydramine HCl 50 mg 11/23/20 14:21 Diphenhydramine 50 Mg/Ml Sdv IVPUSH ONETIME PRN hypersensitivity reaction Epinephrine HCl 0.3 mg 11/23/20 14:21 Epinephrine 1 Mg/Ml Sdv IM ONETIME PRN hypersensitivity reaction Famotidine 20 mg 11/23/20 14:21 Famotidine 20 Mg/2 Ml Sdv IVPUSH ONETIME PRN hypersensitivity reaction CASIRIVIMAB/IMDEVIMAB 10 ml/ 110 mls @ 220 mls/hr 11/23/20 14:30 11/23/20 14:53 Sodium Chloride IV 11/23/20 14:59 220 mls/hr ONETIME ONE Administration Methylprednisolone Sodium Succinate 125 mg 11/23/20 14:21 Methylprednisolone Sodium Succinate 125 Mg/2 Ml Sdv IVPUSH ONETIME PRN hypersensitivity reaction Potassium Chloride 40 meq 11/23/20 15:41 11/23/20 17:40 Potassium Chloride 20 Meq Tab.Er PO 11/23/20 15:42 40 meq ONETIME ONE Administration Sodium Chloride 10 ml 11/23/20 13:36 Sodium Chloride 0.9% 10 Ml Syringe FLUSH ASDIRECTED PRN Keep Vein Open Sodium Chloride 30 ml 11/23/20 14:30 Sodium Chloride 0.9% 10 Ml Syringe FLUSH ASDIRECTED TOMER - Re-Assessments/Exams Free Text/Narrative Re-Assessment/Exam: Patient is a 45-year-old female presenting to the emergency department with request of receiving monoclonal antibody infusion. She is 8 days into her illness. Denies any significant shortness of breath except when she coughs. Biggest complaint is her fevers which she states were as high as 104 this morning. Exam is unremarkable with exception of a harsh cough with deep b reathing. I have ordered blood work and chest x-ray. I spoke with patient to provide information about Regeneron treatment for patient I offered them the ``Patient and Caregiver JOHN Lebron Fact Sheet to read and review I stated the drug has been approved by an emergency use authorization (EUA) process and has not fully been FDA reviewed or approved The patient meets the EUA requirements I discussed there are other potential treatment options that are currently not FDA approved to treat COVID-19. Offered opportunity to ask questions and all questions were answered Patient voiced understanding and agreed to proceed with treatment for patient. 11/23/20 16:06 Hematology significant for potassium low at 3.2. Is otherwise unremarkable. I have ordered potassium chloride 40 mEq oral to be given now.Chest x-ray shows evidence of mild Covid pneumonia. Patient is maintaining oxygen saturations at 98 to 100% on room air. She has finished her Regeneron infusion without event. She is currently completing her 1 hour waiting period. 11/23/20 1745 Patient has completed her 1 hour waiting period without adverse event. She will be discharged home. Discharge instructions as documented. Departure - Departure Time of Disposition: 17:45 Disposition: Home, Self-Care 01 Condition: Good Clinical Impression: COVID-19 - Discharge Information *PRESCRIPTION DRUG MONITORING PROGRAM REVIEWED*: No *COPY OF PRESCRIPTION DRUG MONITORING REPORT IN PATIENT LUCINA: No Instructions: COVID-19 Referrals: PCP,None [Primary Care Provider] - Forms: ED Department Discharge Additional Instructions: You were seen in the emergency department today for Covid symptoms and to rec eive monoclonal antibody infusion. You did receive an infusion of Regeneron in the emergency department. Your potassium was slightly low in the ER, therefore you did receive a potassium supplement as well. Chest x-ray showed mild Covid pneumonia; however, your oxygen was excellent throughout your stay in the ER. Recommend that you go home and rest. Continue use Tylenol and ibuprofen as needed for fever and discomfort. Increase your fluid intake. If you experience any new or worsening symptoms, please do not hesitate to return to the emergency department for reevaluation. Sepsis Event Note (ED) - Evaluation Sepsis Screening Result: No Definite Risk
--- NOTE | 2020-11-23 15:06 | CR ---
Chest: Frontal view of the chest was obtained. Comparison: Prior CT chest study of 06/01/17. Heart size and mediastinum are normal. Slight scoliosis is noted within the spine. Patchy areas of increased density are seen within the upper and lower lungs. Lungs otherwise are clear. Impression: 1. Patchy areas of increased density within the upper and lower lungs suspicious for mild COVID pneumonia. Diagnostic code #3
[2020-11-23] MEDS ORDERED: Potassium Chloride 20 MEQ Tab.ER PO ONE (15:41)
[2020-11-23 17:53] VITALS: BP 140/72; PULSE 86
== END 2020-11-23 17:51 | disposition home or self-care (01) ==
LOC: JD.ED 11:24
DX: U07.1 COVID-19 (principal); J45.909 Unspecified asthma, uncomplicated; E03.9 Hypothyroidism, unspecified; Z88.8 Allergy status to other drugs, medicaments and biological substances; Z88.1 Allergy status to other antibiotic agents; Z88.0 Allergy status to penicillin; Z88.2 Allergy status to sulfonamides; Z79.899 Other long term (current) drug therapy; Z79.82 Long term (current) use of aspirin
CPT/HCPCS: 36415; 71045; 80053; 85025; 99284; A9270; M0243; Q0243; 99283

== ENCOUNTER 2021-10-14 11:52 | Day surgery (SDC) | payer BC ==
[~2021-10-14 11:52] MED LIST: Bupivacaine 0.25% 10 ML SDV ONE; EPINEPHrine 1 MG/ML 30 ML MDV IRR SCH; Lactated Ringers 1,000 ML IV SCH; Lidocaine 1% 4 ML ONE; Lidocaine 1%/Sod Bicarbonate in NS 8.4% 1 ML Syringe IDERM PRN; Midazolam 1 MG/ML 2 ML SDV ONE; Propofol 200 MG/20 ML SDV ONE; Sodium Chloride 0.9% 10 ML Syringe FLUSH PRN; Sodium Chloride 0.9% 10 ML Syringe FLUSH SCH; fentaNYL 100 MCG/2 ML SDV ONE
[2021-10-14] MEDS ORDERED: ceFAZolin 2 GM Vial ONE (13:15)
[2021-10-14] MEDS ORDERED: Ondansetron 4 MG/2 ML SDV ONE (13:39)
[2021-10-14] MEDS ORDERED: traMADol 50 MG Tab PO PRN (14:04)
[2021-10-14] MEDS ORDERED: fentaNYL 100 MCG/2 ML SDV IVPUSH PRN (14:08)
[2021-10-14] MEDS ORDERED: Ondansetron 4 MG/2 ML SDV IVPUSH PRN (14:08)
[2021-10-14] MEDS ORDERED: HYDROmorphone 0.5 MG/0.5 ML Syringe IVPUSH PRN (14:08)
[2021-10-14 16:09] VITALS: BP 107/66; PULSE 63
== END 2021-10-14 15:52 | disposition home or self-care (01) ==
LOC: JD.SDS 11:52
PROVIDERS: ATTEND Orthopaedic Surgery
DX: S83.242A Other tear of medial meniscus, current injury, left knee, initial encounter (principal); M22.42 Chondromalacia patellae, left knee; F41.9 Anxiety disorder, unspecified; K21.9 Gastro-esophageal reflux disease without esophagitis; J45.909 Unspecified asthma, uncomplicated; F32.A Depression, unspecified; E03.9 Hypothyroidism, unspecified; E66.9 Obesity, unspecified; Z79.890 Hormone replacement therapy; Z79.83 Long term (current) use of bisphosphonates; Z79.899 Other long term (current) drug therapy; Z79.51 Long term (current) use of inhaled steroids; Z88.0 Allergy status to penicillin; Z91.040 Latex allergy status; Z88.1 Allergy status to other antibiotic agents; Z88.2 Allergy status to sulfonamides; Z88.8 Allergy status to other drugs, medicaments and biological substances; Z98.890 Other specified postprocedural states; Z90.710 Acquired absence of both cervix and uterus; Z86.16 Personal history of COVID-19; Z68.36 Body mass index [BMI] 36.0-36.9, adult
CPT/HCPCS: 01400; A9270-GY; J0171; J0690; J1170; J2250; J2405; J2704; J3010; J3490; J7120

== ENCOUNTER 2024-09-04 20:44 | Emergency (ER) | payer BC ==
[2024-09-04] MEDS ORDERED: Sodium Chloride 0.9% 10 ML Syringe FLUSH PRN (21:24)
[2024-09-04 21:32] LABS: APPEARANCE,URINE CLEAR (Clear); BILIRUBIN,URINE NEGATIVE (Negative); COLOR,URINE YELLOW (Yellow); GLUCOSE,URINE NEGATIVE (Negative); KETONES,URINE TRACE (Negative); LEUKOCYTE ESTERASE,URINE NEGATIVE (Negative); NITRITE,URINE NEGATIVE (Negative); OCCULT BLOOD,URINE TRACE-INTACT (Negative); PROTEIN,URINE 1+ (Negative); UROBILINOGEN,URINE 0.2 (0.2-1.0)
[2024-09-04 21:41] LABS: SQUAMOUS EPITHELIAL CELLS,UR 0-5 /hpf (0-5); WBC,URINE 0-5 /hpf (0-5)
[2024-09-04 21:42] LABS: BACTERIA,URINE FEW /hpf (FEW); MUCUS,URINE MODERATE /hpf (FEW)
[2024-09-04 21:47] LABS: BASOPHILS ABSOLUTE AUTO 0.1 K/mm3 (0.0-0.2); BASOPHILS PERCENT AUTO 0.6 % (0.0-1.0); EOSINOPHILS ABSOLUTE AUTO 0.4 K/mm3 (0.0-0.4); EOSINOPHILS PERCENT AUTO 5.3 % (0.0-6.0); HEMATOCRIT 39.3 % (37.0-47.0); IMMATURE GRAN ABSOLUTE AUTO 0.02 K/mm3 (0.00-0.05); IMMATURE GRAN PERCENT AUTO 0.2 % (0.0-0.4); LYMPHOCYTES ABSOLUTE AUTO 2.4 K/mm3 (1.0-4.8); LYMPHOCYTES PERCENT AUTO 29.3 % (24.0-44.0); MEAN CORPUSCULAR HEMOGLOBIN 28.8 pg (28.0-32.0); MEAN CORPUSCULAR HGB CONC 33.1 g/dl (32.0-36.0); MEAN CORPUSCULAR VOLUME 86.9 fl (83.0-99.0); MEAN PLATELET VOLUME 11.1 fl (9.4-12.3); MONOCYTES ABSOLUTE AUTO 0.8 K/mm3 (0.0-0.8); MONOCYTES PERCENT AUTO 9.7 % (0.0-8.0); NEUTROPHILS ABSOLUTE AUTO 4.6 K/mm3 (1.8-7.7); NEUTROPHILS PERCENT AUTO 54.9 % (41.0-71.0); PLATELET COUNT,PLT 234 K/mm3 (150-400); RED BLOOD CELL COUNT 4.52 M/mm3 (4.10-5.30); WHITE BLOOD CELL COUNT,WBC 8.29 K/mm3 (3.9-11.3)
[2024-09-04] MEDS: Ketorolac 15 MG/ML SDV IVPUSH ONE (21:57)
[2024-09-04] MEDS: Sodium Chloride 0.9% 1,000 ML IV ONE (21:57)
[2024-09-04] MEDS: Iopamidol 612 MG/ML 100 ML Bottle IVPUSH ONE (21:58)
[2024-09-04 22:13] LABS: A/G RATIO 1.1 (1-2); ALBUMIN 3.7 g/dl (3.4-5.0); ANION GAP 10.8 (5-15); BILIRUBIN TOTAL 1.1 mg/dL (0.2-1.0); EST CRCL DRUG DOSING (CG) 53.23 mL/min; POTASSIUM,K 3.8 mEq/L (3.5-5.1); PROTEIN TOTAL,TP 7.2 g/dl (6.4-8.2)
[2024-09-04 23:33] VITALS: BP 123/78; PULSE 63
== END 2024-09-04 23:26 | disposition home or self-care (01) ==
LOC: JD.ED 20:44
DX: R10.11 Right upper quadrant pain (principal); M54.50 Low back pain, unspecified; E03.9 Hypothyroidism, unspecified; Z91.040 Latex allergy status; Z88.8 Allergy status to other drugs, medicaments and biological substances; Z88.2 Allergy status to sulfonamides; Z79.51 Long term (current) use of inhaled steroids; Z79.899 Other long term (current) drug therapy; Z79.890 Hormone replacement therapy; Z86.16 Personal history of COVID-19
CPT/HCPCS: 36415; 74177; 80053; 81001; 83690; 84703; 85025; 93005; 96361; 96374; 99284; J1885; J7030; Q9967; 93010